=== PATIENT | male | born 1990 | race Caucasian/White ===

== ENCOUNTER 2018-04-09 05:41 | Emergency (ER) | payer SELFPAY ==
[2018-04-09 07:44] LABS: HIV 1&2 ANTIBODY NEGATIVE (NEGATIVE)
[2018-04-09 08:09] LABS: RAPID PLASMA REAGIN NONREACTIVE (NR)
== END 2018-04-09 08:35 | disposition home or self-care (01) ==
LOC: FTE 08:35
DX: S61.401A Unspecified open wound of right hand, initial encounter (principal); S61.402A Unspecified open wound of left hand, initial encounter; F17.210 Nicotine dependence, cigarettes, uncomplicated; F15.10 Other stimulant abuse, uncomplicated; X58.XXXA Exposure to other specified factors, initial encounter; Y92.9 Unspecified place or not applicable
CPT/HCPCS: 86592; 86703; 99283